=== PATIENT | female | born 1975 | race Two or more races ===

== ENCOUNTER 2019-12-05 06:45 | Emergency (ER) | payer SELFPAY ==
[2019-12-05] MEDS ORDERED: FAMOTIDINE INJ/PF 20 MG/2 ML SDV IV ONE (06:52)
--- NOTE | 2019-12-05 07:02 | ER Document Report ---
ED Allergic Reaction - General Stated Complaint: POSS ALLERGIC REACTION Time Seen by Provider: 12/05/19 06:50 Mode of Arrival: Ambulatory Information source: Patient, Relative Notes: This 44-year-old female patient comes emergency room complaining of diffuse itching and rash that started after taking some Mucinex DM this morning. She reports she has had a cough for 2 months. Cough does have occasional yellow sputum. There is been no fever. Her spouse gave her a Z-Emerson last month that seemed to help some. She does have a history of asthma and is using ryjr-dta-ihtlant inhalers from [employer]. She did take 50 mg of Benadryl about 20 minutes prior to arrival. She denies having this reaction in the past. She does report that she has a past history of leukemia, and takes a once a week medication for her immune system. Her spouse reports the medications were prescribed in [place], all the writing is in [place], and the bottles were left at home. He reports she travels back and forth between here in [place], has been here since September 06, 2019. The spouse reports the patient has become quite concerned and almost obsessed with having coronavirus in the last few days. - Related Data Allergies/Adverse Reactions: No Known Allergies Allergy (Unverified 12/05/19 06:52) Past Medical History - General Information source: Patient, Relative - Social History Smoking Status: Never Smoker Cigarette use (# per day): No Chew tobacco use (# tins/day): No Smoking Education Provided: No Frequency of alcohol use: None Drug Abuse: None Lives with: Spouse/Significant other Family History: Reviewed & Not Pertinent Patient has suicidal ideation: No Patient has homicidal ideation: No Pulmonary Medical History: Reports: Hx Asthma Malignancy Medical History: Reports: Hx Leukemia Past Surgical History: Reports: Hx Gynecologic Surgery, Other - Bone marrow transplant for leukemia Physical Exam - Vital signs Vitals: Resp Pulse Ox 18 97 12/05/19 06:47 12/05/19 06:47 Interpretation: Normal - General General appearance: Alert, Anxious In distress: Mild - HEENT Head: Normocephalic, Atraumatic Eyes: Normal Pupils: PERRL Nasal: Normal Mouth/Lips: Normal Mucous membranes: Normal Pharynx: Normal Neck: Normal - Respiratory Respiratory status: No respiratory distress Breath sounds: Normal - Cardiovascular Rhythm: Regular Heart sounds: Normal auscultation Murmur: No - Abdominal Inspection: Obese Bowel sounds: Normal Tenderness: Nontender - Back Back: Normal - Extremities General upper extremity: Normal inspection General lower extremity: Normal inspection - Neurological Neuro grossly intact: Yes - Psychological Associated symptoms: Anxious - Skin Skin Temperature: Warm Skin Moisture: Dry Skin Color: Normal Notes: Initially the patient was scratching at her face and neck causing some erythema. I did not notice any periorbital swelling. I did not notice any rash on the extremities face or neck. The patient did receive Benadryl prior to arrival and at this time states that the symptoms seem to have cleared up. Course - Re-evaluation Re-evalutation: 12/05/19 08:31 Patient has been sleeping. She is awakened for reexam. There is no itching or rash at this time and she feels comfortable going home. Her spouse had requested a prescription for an EpiPen since the one he has for her at home has . - Vital Signs Vital signs: Temp Pulse Resp BP Pulse Ox 98.4 F 18 132/72 H 97 12/05/19 07:12 12/05/19 07:09 12/05/19 07:09 12/05/19 07:09 Discharge - Discharge Clinical Impression: Allergic reaction caused by a drug Qualifiers: Encounter type: initial encounter Qualified Code(s): T78.40XA - Allergy, unspecified, initial encounter Condition: Stable Disposition: HOME, SELF-CARE Additional Instructions: Acute Allergic Reaction to Drugs Your symptoms MAY BE due to an allergic reaction. The physician feels that a medication you've taken MAY BE responsible. Medication allergy can cause hives, swelling of the hands, feet and face, hoarseness, and difficulty swallowing or breathing. This type of allergy can also be caused by animal dander, foods, infection, or insect bites. Medication can cause allergy even when prior use of this same medication caused no problems. Emergency treatment may include adrenalin and antihistamines. Home treatment includes the following: (1) Stop the suspected medication. (2) Oral antihistamines for the next four to five days (Benadryl, Pepcid). (3) Avoid aspirin until the hives completely disappear. (4) Avoid hot baths or showers until the hives are completely gone. Call the doctor if faintness, difficulty swallowing, tightness in the chest or wheezing occurs. Take Benadryl and Pepcid for itching or hives if needed. Drink plenty of fluids and get plenty of rest. Follow-up with a local primary care provider if your upper respiratory tract infection symptoms continue. RETURN TO THE EMERGENCY ROOM IF ANY NEW OR WORSENING SYMPTOMS. Prescriptions: Epinephrine [Epipen 2-Emerson] 0.3 mg IM PRN PRN #1 packet PRN Reason:
[2019-12-05 08:53] VITALS: BP 137/84
== END 2019-12-05 08:54 | disposition home or self-care (01) ==
LOC: ER 06:45
DX: T78.40XA Allergy, unspecified, initial encounter (principal); R21 Rash and other nonspecific skin eruption; R05 Cough; J45.909 Unspecified asthma, uncomplicated; C95.90 Leukemia, unspecified not having achieved remission; X58.XXXA Exposure to other specified factors, initial encounter
CPT/HCPCS: 99283; 96374; S0028